=== PATIENT | female | born 1970 | race Caucasian/White ===

== ENCOUNTER 2018-03-22 12:29 | Emergency (ER) | payer MEDICAID, OTHER ==
[2018-03-22] MEDS ORDERED: Bacitracin 500 Units/gm Oint Foilpak UD ONE (12:53)
[2018-03-22] MEDS ORDERED: Sodium Chloride 0.9% 1,000 ML IV ONE (13:26)
[2018-03-22 13:33] LABS: BASO % 0.1 % (0.0-2.0); EOS % 0.1 % (0.0-4.0); HEMOGLOBIN 11.9 g/dL (11.0-16.0); LYMPH # 0.7 K/uL (1.0-4.3); LYMPH % 3.8 % (20.0-40.0); MEAN CELL VOLUME 76.3 fL (81.0-99.0); MEAN CORPUSCULAR HEMOGLOBIN 24.1 pg (27.0-31.0); MEAN CORPUSCULAR HGB CONC 31.5 g/dL (33.0-37.0); MEAN PLATELET VOLUME 10.8 fL (7.2-11.7); MONO # 1.3 K/uL (0.0-0.8); MONO % 6.7 % (0.0-10.0); NEUT # 17.3 K/uL (1.8-7.0); NEUT % 89.3 % (50.0-75.0); PLATELET COUNT 195 K/uL (130-400); RBC 4.94 Mil/uL (3.80-5.20); RED CELL DISTRIBUTION WIDTH 18.6 % (11.5-14.5); WHITE BLOOD COUNT 19.4 K/uL (4.8-10.8)
[2018-03-22 13:35] LABS: HCG,QUALITATIVE URINE NEGATIVE (NEGATIVE)
[2018-03-22] MEDS ORDERED: Sodium Chloride 0.9% 1,000 ML ONE (13:35)
[2018-03-22 13:37] LABS: SQUAMOUS EPITHIAL 2 /hpf (0-5)
[2018-03-22 13:44] LABS: URINE BILIRUBIN NEGATIVE (NEGATIVE); URINE BLOOD NEGATIVE (NEGATIVE); URINE CLARITY Hazy (Clear); URINE COLOR Yellow (YELLOW); URINE GLUCOSE (UA) NORMAL (Normal); URINE LEUKOCYTE ESTERASE NEG Leu/uL (Negative); URINE PROTEIN 1+ mg/dL (NEGATIVE); URINE UROBILINOGEN NORMAL mg/dL (0.2-1.0)
[2018-03-22 13:45] LABS: URINE BACTERIA MANY (<OCC)
[2018-03-22 13:57] LABS: ALB/GLOB RATIO 1.4 (1.0-2.1); ALBUMIN 4.9 g/dL (3.5-5.0); ALT/SGPT 27 U/L (9-52); AST/SGOT 26 U/L (14-36); BLOOD UREA NITROGEN 18 mg/dL (7-17); CALCIUM 9.1 mg/dl (8.6-10.4); GFR NON-AFRICAN AMERICAN > 60; LIPASE 83 U/L (23-300)
[2018-03-22] MEDS ORDERED: cefTRIAXone IV 1 gm in Dextros 50 ML IVPB ONE (13:59)
[2018-03-22 14:22] LABS: ANISOCYTOSIS SLIGHT; BANDS 3 % (0-2); HYPOCHROMIC MODERATE; LYMPHOCYTE 6 % (20-40); MONOCYTE 9 % (0-10); NEUTROPHIL 82 % (50-75); OVALOCYTES SLIGHT; PLATELET ESTIMATE NORMAL (NORMAL); TOTAL CELLS COUNTED 100
--- NOTE | 2018-03-22 14:40 | C.PDOC ---
History Of Present Illness 47 y/o female presents to the ER complaining of nausea and vomiting which began at 10 am today. Patient states that she vomited x10. Patient reports that she has mild dizziness. She is c/o mild dysuria and frequency. She notes that her LMP was 2 weeks ago. Denies having fever, chills, abdominal pain, and diarrhea. Time Seen by Provider: 03/22/18 13:26 Chief Complaint (Nursing): Dizziness/Lightheaded History Per: Patient History/Exam Limitations: no limitations Onset/Duration Of Symptoms: Days Current Symptoms Are (Timing): Still Present Severity: Moderate Past Medical History Reviewed: Historical Data, Nursing Documentation, Vital Signs Vital Signs: Last Vital Signs Temp 97.5 F L 03/22/18 12:38 Pulse 76 03/22/18 12:38 Resp 20 03/22/18 12:38 BP 149/98 H 03/22/18 12:38 Pulse Ox 100 03/22/18 12:38 - Medical History PMH: HTN Surgical History: Family History: States: No Known Family Hx - Social History Hx Alcohol Use: No Hx Substance Use: No - Immunization History Hx Tetanus Toxoid Vaccination: No Hx Influenza Vaccination: No Hx Pneumococcal Vaccination: No Review Of Systems Constitutional: Negative for: Fever, Chills Gastrointestinal: Positive for: Nausea, Vomiting. Negative for: Abdominal Pain, Diarrhea Genitourinary: Negative for: Dysuria, Hematuria Neurological: Positive for: Dizziness Physical Exam - Physical Exam Appears: Non-toxic, No Acute Distress Skin: Normal Color, Warm, Dry Head: Atraumatic, Normacephalic Eye(s): bilateral: Normal Inspection Nose: Normal Oral Mucosa: Moist Neck: Supple Chest: Symmetrical Cardiovascular: Rhythm Regular Respiratory: Normal Breath Sounds, No Rales, No Rhonchi, No Wheezing Gastrointestinal/Abdominal: Normal Exam, Soft, No Tenderness, No Guarding, No Rebound Neurological/Psych: Oriented x3, Normal Speech ED Course And Treatment - Laboratory Results Result Diagrams: 03/22/18 13:28 03/22/18 13:28 Lab Results: Total Bilirubin 0.3 mg/dL (0.2-1.3) 03/22/18 13:28 AST 26 U/L (14-36) 03/22/18 13:28 ALT 27 U/L (9-52) 03/22/18 13:28 Alkaline Phosphatase 97 U/L (38-126) 03/22/18 13:28 Total Protein 8.3 g/dL (6.3-8.3) 03/22/18 13:28 Albumin 4.9 g/dL (3.5-5.0) 03/22/18 13:28 Globulin 3.4 gm/dL (2.2-3.9) 03/22/18 13:28 Albumin/Globulin Ratio 1.4 (1.0-2.1) 03/22/18 13:28 Lipase 83 U/L (23-300) 03/22/18 13:28 Urine Color Yellow (YELLOW) 03/22/18 13:28 Urine Clarity Hazy (Clear) 03/22/18 13:28 Urine pH 5.0 (5.0-8.0) 03/22/18 13:28 Ur Specific [place] 1.020 (1.003-1.030) 03/22/18 13:28 Urine Protein 1+ mg/dL (NEGATIVE) H 03/22/18 13:28 Urine Glucose (UA) Normal mg/dL (Normal) 03/22/18 13:28 Urine Ketones Trace mg/dL (NEGATIVE) 03/22/18 13:28 Urine Blood Negative (NEGATIVE) 03/22/18 13:28 Urine Nitrate Positive (NEGATIVE) H 03/22/18 13:28 Urine Bilirubin Negative (NEGATIVE) 03/22/18 13:28 Urine Urobilinogen Normal mg/dL (0.2-1.0) 03/22/18 13:28 Ur Leukocyte Esterase Neg Howie/uL (Negative) 03/22/18 13:28 Urine WBC (Auto) 3 /hpf (0-5) 03/22/18 13:28 Ur Squamous Epith Cells 2 /hpf (0-5) 03/22/18 13:28 Urine Bacteria Many (<OCC) H 03/22/18 13:28 Urine HCG, Qual Negative (NEGATIVE) 03/22/18 13:28 Urine HCG, Qual Negative (NEGATIVE) 03/22/18 13:28 Lab Interpretation: Abnormal (WBC 19.4 with left shift, UA nitrite positive with many bacteria) O2 Sat by Pulse Oximetry: 100 (RA) Pulse Ox Interpretation: Normal Progress Note: Patient treated with IV fluids and Rocephin. Reevaluation Time: 14:58 Reassessment Condition: Improved Medical Decision Making Medical Decision Making: Plan: --Labs --UA --HCG, Qual. --IV Fluids --Rocephin IV Disposition Counseled Patient/Family Regarding: Studies Performed, Diagnosis, Need For Followup, Rx Given - Disposition Referrals: [facility] [Outside] Disposition: HOME/ ROUTINE Disposition Time: 14:59 Condition: IMPROVED Prescriptions: Cephalexin [cephalexin] 500 mg PO QID #30 cap Ondansetron ODT [Zofran ODT] 1 odt PO QID PRN #6 odt PRN Reason: Nausea/Vomiting Instructions: Kidney Infection Forms: Zmanda (Pashto) Print Language: CYMRAES - Clinical Impression Clinical Impression: Pyelonephritis - Scribe Statement The provider has reviewed the documentation as recorded by the Yolyiblatonia Obando Provider Attestation: All medical record entries made by the Yolyibe were at my direction and personally dictated by me. I have reviewed the chart and agree that the record accurately reflects my personal performance of the history, physical exam, [facility] decision making, and the department course for this patient. I have also personally directed, reviewed, and agree with the discharge instructions and disposition.
[2018-03-22 15:24] VITALS: BP 129/79; PULSE 87; RESP 16; TEMP 98.4; O2SAT 96
--- NOTE | 2018-03-23 12:27 | CARD ---
APPROVED REPORT Date of service: 03/22/2018 EKG Measurement Heart [id number] <Conclusion> Normal sinus rhythm Possible Left atrial enlargement Nonspecific T wave abnormality Abnormal ECG
== END 2018-03-22 15:22 | disposition home or self-care (01) ==
LOC: C.ER 12:29
DX: N12 Tubulo-interstitial nephritis, not specified as acute or chronic (principal)
CPT/HCPCS: 80053; 81001; 82948; 83690; 84703; 85025; 87086; 93005; 96361; 96365; 99285; J0696; J7030